=== PATIENT | male | born 1965 | race Caucasian/White ===

== ENCOUNTER → 2017-09-29 | Outpatient (CLI) | payer SELFPAY ==
[2017-09-29 10:48] LABS: BILIRUBIN,URINE NEGATIVE (NEGATIVE); BLOOD/HEMOGLOBIN,URINE 2+ (NEGATIVE); GLUCOSE, URINE NEGATIVE (NEGATIVE); KETONES,URINE NEGATIVE (NEGATIVE); LEUKOCYTE ESTERASE ,URINE 1+ (NEGATIVE); NITRITES,URINE NEGATIVE (NEGATIVE); PH,URINE 6.5 (5.0 - 8.0); PROTEIN,URINE 1+ (NEGATIVE); UROBILINOGEN,URINE 2+ (NORMAL)
[2017-09-29 10:53] LABS: BASOPHILS % (AUTO) 0.6 % (0.2-1.0); EOSINOPHILS # (AUTO) 0.2 x10^3/uL (0.0-0.2); EOSINOPHILS % (AUTO) 2.3 % (0.9-2.9); HEMATOCRIT 40.9 % (42.0-54.0); HEMOGLOBIN 14.4 g/dL (13.5-18.0); LYMPHOCYTES # (AUTO) 2.1 X10^3/uL (1.3-2.9); MEAN CORPUSCULAR HEMOGLOBIN 31.9 pg (27.0-34.0); MEAN CORPUSCULAR HGB CONC 35.1 g/dL (33.0-35.0); MEAN PLATELET VOLUME 8.7 fL (7.4-11.0); MONOCYTES # (AUTO) 0.7 x10^3/uL (0.3-0.8); MONOCYTES % (AUTO) 9.7 % (0.0-13.0); NEUTROPHILS # (AUTO) 4.4 x10^3/uL (2.2-4.8); NEUTROPHILS % (AUTO) 59.4 % (42.0-75.0); PLATELET COUNT 283 X10^3/uL (150.0-450.0); RED CELL DISTRIBUTION WIDTH 13.8 % (11.6-16.5); WHITE BLOOD COUNT 7.4 X10^3/uL (3.6-10.0)
[2017-09-29 10:55] LABS: APPEARANCE,URINE CLEAR (CLEAR); COLOR,URINE YELLOW (YELLOW)
[2017-09-29 10:57] LABS: RBC,URINE 0-5 /HPF (NEGATIVE)
--- NOTE | 2017-09-29 10:57 | RAD ---
Examination: Chest x-ray. Clinical History: Preop for displaced fracture of right clavicle. Technique: PA and lateral views of the chest were obtained. Comparison: None available. Findings: The cardiac and mediastinal contours are within normal limits. No pneumothorax or pleural effusion is noted. The lungs appear clear. There is an oblique fracture of the mid diaphysis of the right clavicle, with inferior displacement o f the distal fragment by a full bone width. The fracture fragments override significantly. Mild degen erative changes are noted in the spine. Impression: 1. No acute cardiopulmonary pathology. 2. Fracture of the right clavicle, as described above. Reported By:
[2017-09-29 10:58] LABS: BACTERIA,URINE NEGATIVE /HPF (NEGATIVE); MUCUS,URINE RARE /HPF (NEGATIVE); SQUAMOUS EPITHELIAL CELL,UR NEGATIVE /HPF (NEGATIVE)
[2017-09-29 11:06] LABS: ALANINE AMINOTRANSFERASE 39 Units/L (12-78); ALBUMIN 3.4 g/dL (3.4-5.0); ALKALINE PHOSPHATASE 98 Units/L (46-116); ASPARTATE AMINO TRANSFERASE 25 Units/L (15-37); BLOOD UREA NITROGEN 13 mg/dL (7-18); CALCIUM 8.9 mg/dL (8.5-10.1); CARBON DIOXIDE 27.5 mmol/L (21-32); CHLORIDE 104 mmol/L (98-107); CREATININE 0.99 mg/dL (0.70-1.30); SODIUM 139 mmol/L (136-145); TOTAL PROTEIN 7.7 g/dL (6.4-8.2); eGFR BLACK RACES > 60 (>60); eGFR NON BLACK RACES > 60 (>60)
[2017-09-29 11:25] LABS: ERYTHROCYTE SEDIMENTATION RATE 30 MM/HOUR (0-15)
== END ==
LOC: LAB 10:05
PROVIDERS: ATTEND Orthopaedic Surgery
DX: Z01.818 Encounter for other preprocedural examination (principal); Z01.810 Encounter for preprocedural cardiovascular examination; Z01.811 Encounter for preprocedural respiratory examination; Z11.8 Encounter for screening for other infectious and parasitic diseases; Z79.899 Other long term (current) drug therapy; S42.021A Displaced fracture of shaft of right clavicle, initial encounter for closed fracture; X58.XXXA Exposure to other specified factors, initial encounter
CPT/HCPCS: 36415; 71046; 80053; 81001; 85025; 85652; 86140; 87640; 87641; 93005; 93010

== ENCOUNTER 2017-10-01 08:11 | Day surgery (SDC) | payer SELFPAY ==
[2017-10-01] MEDS ORDERED: D5 LR 1000 ML 1,000 ML IV ONE (08:23)
[2017-10-01] MEDS ORDERED: ANCEF VIAL 1 GM ONE (08:23)
[2017-10-01] MEDS ORDERED: NS 100 ML IV 100 ML IV ONE (08:23)
[2017-10-01] MEDS ORDERED: NAROPIN 0.75% EPI ONE (09:23)
[2017-10-01] MEDS ORDERED: FENTANYL INJ 250 mcg ONE (09:50)
[2017-10-01] MEDS ORDERED: LR 1000 ML IV 1,000 ML IV ONE (10:47)
[2017-10-01] MEDS ORDERED: NS IRRIGATION 1000 ML 1,000 ML with BACITRACIN VIAL 50,000 UNT IR ONE ×2 (10:52)
[2017-10-01] MEDS ORDERED: BACTROBAN OINT ONE (11:58)
[2017-10-01] MEDS ORDERED: BENADRYL INJ 50 MG VIAL IVP PRN (12:14)
[2017-10-01] MEDS ORDERED: PHENERGAN INJ 25 MG IVP PRN (12:14)
[2017-10-01] MEDS ORDERED: ZOFRAN INJ 4 MG VIAL IVP PRN (12:14)
[2017-10-01] MEDS: DILAUDID INJ IVP PRN ×6 (12:14→12:39)
[2017-10-01] MEDS ORDERED: REGLAN INJ 10 MG VIAL IVP PRN (12:14)
[2017-10-01] MEDS ORDERED: NORCO 5/325 MG TAB PO PRN (12:23)
[2017-10-01] MEDS: DILAUDID INJ ONE ×2 (12:46→13:00)
[2017-10-01] MEDS ORDERED: NORCO 5/325 MG TAB ONE (13:08)
[2017-10-01] MEDS ORDERED: BENADRYL INJ 50 MG VIAL ONE (13:13)
[2017-10-01 13:54] VITALS: BP 157/70
[2017-10-01] MEDS ORDERED: DIPRIVAN VIAL ONE (15:48)
[2017-10-01] MEDS ORDERED: QUELICIN (OR ANECTINE) ONE (15:48)
[2017-10-01] MEDS ORDERED: ZOFRAN INJ 4 MG VIAL ONE (15:48)
[2017-10-01] MEDS ORDERED: NORCURON INJ 10 MG VIAL ONE (15:48)
[2017-10-01] MEDS ORDERED: ROBINUL ONE (15:48)
[2017-10-01] MEDS ORDERED: XYLOCAINE 2 % (PLAIN) ONE (15:48)
[2017-10-01] MEDS ORDERED: SUPRANE IN ONE (15:48)
[2017-10-01] MEDS ORDERED: VERSED ONE (15:48)
[2017-10-01] MEDS ORDERED: NEOSTIGMINE INJ ONE (15:48)
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
== END 2017-10-01 13:46 | disposition home or self-care (01) | DRG 517 ==
LOC: SURG1 08:11
PROVIDERS: ATTEND Orthopaedic Surgery
PROC: 0PS904Z Reposition Right Clavicle with Internal Fixation Device, Open Approach (ICD-10-PCS; principal; 2017-10-01 11:30)
DX: S42.021A Displaced fracture of shaft of right clavicle, initial encounter for closed fracture (principal); X58.XXXA Exposure to other specified factors, initial encounter
CPT/HCPCS: 64418; 76000; A4216; A4222; J0330; J0690; J1170; J1200; J2001; J2250; J2405; J2710; J3010; J3490; J7120

== ENCOUNTER → 2017-10-14 | Outpatient (CLI) | payer SELFPAY ==
[2017-10-01 13:54] VITALS: BP 157/70
--- NOTE | 2017-10-14 08:37 | RAD ---
Examination: X-rays of the right shoulder. Clinical history: Follow-up of right clavicle fracture. Technique: Three views of the right shoulder were obtained. Comparison: Chest x-ray dated 09/29/2017. Findings: An oblique fracture of the mid diaphysis of the right clavicle has now been internally fixated with a metallic plate and multiple screws and is in near anatomic reduction. Surgical skin chantelle are seen overlying the right clavicle. No additional bony or soft tissue abnormality is noted. Impression: 1. Fracture of the right clavicle, as described above. Reported By:
== END ==
LOC: RAD 08:07
PROVIDERS: ATTEND Orthopaedic Surgery
DX: S42.021A Displaced fracture of shaft of right clavicle, initial encounter for closed fracture (principal); X58.XXXA Exposure to other specified factors, initial encounter
CPT/HCPCS: 73030

== ENCOUNTER → 2017-11-11 | Outpatient (CLI) | payer SELFPAY ==
--- NOTE | 2017-11-11 09:15 | RAD ---
Examination: Right clavicle, two views History: None provided Findings: Stable position of surgical fixation hardware in the right clavicle. The fracture fragments are in essentially anatomic position and alignment.There is no evidence for additional deformity or re-injury. Impression: Stable appearance of right clavicle fracture ORIF. No new abnormality demonstrated. Reported By:
== END ==
LOC: RAD 08:19
PROVIDERS: ATTEND Orthopaedic Surgery
DX: M89.8X1 Other specified disorders of bone, shoulder (principal); Z98.890 Other specified postprocedural states
CPT/HCPCS: 73000